=== PATIENT | female | born 1945 | race Caucasian/White ===

== ENCOUNTER 2024-08-24 12:00 | Emergency (ER) | payer BC ==
[2024-08-24 12:07] VITALS: BP 138/67; PULSE 92; RESP 18; TEMP 99.7; BMI 23.6
== END 2024-08-24 15:22 | disposition home or self-care (01) ==
LOC: FER 12:00
DX: S93.401A Sprain of unspecified ligament of right ankle, initial encounter (principal); W18.30XA Fall on same level, unspecified, initial encounter
CPT/HCPCS: 70450-TC; 72125-TC; 73610-TC-RT-FY; 73630-TC-RT-FY; 99284-25